=== PATIENT | female | born 1945 | race African-American/Black ===

== ENCOUNTER 2018-08-03 15:46 | Emergency (ER) | payer OTHER, BC | END 2018-08-03 21:06 | disposition home or self-care (01) | LOC: JER 15:46 ==

== ENCOUNTER 2024-03-19 18:10 | Emergency (ER) | payer OTHER ==
[2024-03-19 18:20] VITALS: BP 168/96; PULSE 98; RESP 18; TEMP 98; BMI 26.6
[2024-03-19] MEDS ORDERED: KETOROLAC TROMETHAMINE 60 MG/2 ML VIAL ONE (19:40)
[2024-03-19] MEDS ORDERED: diazePAM 2 MG TABLET ONE (19:40)
[2024-03-19] MEDS: KETOROLAC TROMETHAMINE 60 MG/2 ML VIAL IM ONE (20:05)
[2024-03-19] MEDS: diazePAM 2 MG TABLET PO ONE (20:06)
[2024-03-19] MEDS ORDERED: predniSONE 20 MG TABLET (UD) ONE (21:51)
[2024-03-19] MEDS: predniSONE 20 MG TABLET (UD) PO ONE (21:53)
== END 2024-03-19 22:10 | disposition home or self-care (01) ==
LOC: FER 18:10
PROC: 3E0133Z Introduction of Anti-inflammatory into Subcutaneous Tissue, Percutaneous Approach (ICD-10-PCS; principal; 2024-03-19)
DX: M51.26 Other intervertebral disc displacement, lumbar region (principal); M48.061 Spinal stenosis, lumbar region without neurogenic claudication; M86.38 Chronic multifocal osteomyelitis, other site; M54.50 Low back pain, unspecified
CPT/HCPCS: 72131-TC; 73700-TC-RT; 99285-25